=== PATIENT | female | born 1990 | race Caucasian/White ===

== ENCOUNTER 2023-08-19 20:28 | Emergency (ER) | payer BC, SELFPAY ==
[2023-08-19 20:33] VITALS: BP 151/94
[2023-08-19 22:23] VITALS: BP 140/81
[2023-08-19 23:00] VITALS: BP 131/79
--- NOTE | 2023-08-19 23:43 | ED.GENMED ---
History of Present Illness
General
Chief Complaint: Blood Pressure Problem
Source: patient
Exam Limitations: none
Time Seen by Provider: 08/19/23 23:05
Travel History
Have you had any contact with someone who has COVID-19?: No
Do you have any symptoms of coronavirus? Fever > 100 degrees, chills, cough, shortness of breath, sore throat, loss of taste or smell, muscle aches, or headache?: No
History of Present Illness
History of Present Illness:
This is a 33 year old female that comes in with multiple complaints. States that today she was driving home when she started to have this flashing light like as if she had looked into the sun. State that it didn't go away and she pulled over and she
could see out of the corner of her right eye that her peripheral vision was weird. States that this lasted 25 min. Then she started with a headache in the temporal area and across her forehead. States that she called the Fertility doctor as she
just had egg retrieval and they felt it was a Headache with aura. State that she was told to check her BP and she felt it was elevated at 145/92. So she thought she better come in. States that she also had pain in the left calf that started a week
ago. States that she did see her PCP for this and was to get an US but unable until the 16th. Denies any fever, chills, chest pain, SOB, abd pain, nausea, vomiting, diarrhea, dizziness, urinary burning.
Past History
Past History
ED Past Medical History: GERD, Hypothyroidism, Psychiatric (Anxiety) and Other (PCOS)
ED Past Surgical History: Other (Egg retrieval, )
Social History
Tobacco: Non-smoker
Alcohol: None
Personal:
Living: with family
Review of Systems
Review of Systems
All Other Systems: ROS reviewed and negative except as documented in HPI and ROS
Constitutional: Reports no symptoms; Denies fever or chills
EENT: Reports no symptoms
Respiratory: Reports no symptoms; Denies cough or trouble breathing
Cardiac: Reports no symptoms; Denies chest pain
ABD/GI: Reports no symptoms; Denies abdominal pain, nausea, vomiting or diarrhea
: Reports no symptoms; Denies dysuria, frequency or urgency
Musculoskeletal: Reports other (pain left calf)
Skin: Reports no symptoms
Neurological: Reports headache; Denies dizzy
Psychiatric: Reports no symptoms
Phy Exam
General Physical Exam
General Presentation: well appearing and no apparent distress
General age: appears stated age
General Skin: warm and dry
General Habitus: normal
General Mental: alert
General Hydration: appears well hydrated
ENT Exam
ENT Exam: TM's normal, pharynx normal and neck supple
Eye Exam
Eye Exam: EOMI
Cardiovascular Exam
Cardiovascular Exam: regular rate/rhythm, no edema, no murmur and normal peripheral pulses
Pulmonary Exam
Pulmonary Exam: lungs clear, no respiratory distress, no rales, chest non tender, no crackles, no rhonchi, no wheezing and no cough
Gastrointestinal Exam
Gastrointestinal Exam: normal bowel sounds, soft, no organomegaly, no pulsatile mass, non distended and tender (Slight tenderness (patient states that she has her Period))
NIH Stroke Score
Level of Consciousness: 0 - Alert
LOC questions: 0-Answers both correctly
LOC Commands: 0-Performs both correctly
Best Gaze: 0-Normal
Visual Higuera: 0=Normal, no visual loss
Facial palsy: 0=Normal, symmetrical
Motor - Right Arm: 0=No drift 10 seconds
Motor - Left Arm: 0=No drift 10 seconds
Motor - Right Le-No drift 5 seconds
Motor - Left Le-No drift 5 seconds
Limb Ataxia: 0-Absent
Sensation: 0-Normal
Best Language: 0-No aphasia
Dysarthria: 0-Normal
Extinction and Inattention: 0-No abnormality
Total Score:: 0
Musculoskeletal Exam
Musculoskeletal Exam: full ROM and no edema
Skin Exam
Skin Exam: normal color, warm/dry, no rash and no petechia
Psychiatric Exam
Psychiatric Exam: normal mood/affect
Course
Orders/Labs/Results
Orders:
Orders
08/19/23 23:42
Complete Blood Count/With Diff Urgent
Test Result ONCE
08/19/23 23:43
US Periph Venous LOWER Ext LT Urgent
Comment:
Reason For Exam: pAIN IN CALF
08/20/23 00:00
CT Head W/o Iv Contrast Urgent
Reason For Exam: hEADACHE, vISUAL DISTURBANCE
08/20/23 01:10
Comprehensive Metabolic Panel Urgent
HCG, Serum Qualitative Screen Urgent
Comment: REDRAW
Abnormal Lab Results
08/20/23 08/20/23
00:03 01:10
RBC 4.00 L 10^6/uL
(4.20-5.40)
Hct 35.3 L %
(37.0-47.0)
MCH 31.3 H pg
(27.0-31.0)
Chloride 108 H mmol/L
(98-107)
Creatinine 0.5 L mg/dL
(0.6-1.0)
08/20/23 00:03
08/20/23 01:10
Chloride very slightly elevated. HCG negative.
Vital Signs
Initial and Last Documented VS:
Initial Vital Signs
Temp Pulse Resp BP Pulse Ox
98.6 F 76 16 151/94 100
08/19/23 20:33 08/19/23 20:33 08/19/23 20:33 08/19/23 20:33 08/19/23 20:33
Last Documented Vital Signs
Temp Pulse Resp BP Pulse Ox
98.6 F 70 16 112/80 100
08/19/23 20:33 08/20/23 02:15 08/19/23 20:33 08/20/23 02:15 08/20/23 02:16
MDM/Problems Addressed
Differential Diagnosis Includes:
Headache with Aura, Hypertension,
MDM/Problems Addressed:
This is a 33 year old female that comes in with c/o headache, visual disturbance and left calf pain. States that she was driving when she started with right eye visual change like as if she looked into the sun. States that she pulled over and she
could see in her Peripheral vision this colored lights. States that she called the Fertility specialist and they felt it was a Headache with aura. States that she was told to check her BP and she felt it was elevated so she came in. States that she
also has had this left calf pain.
Will get labs, CT head, US
Back into see patient. Explained that her blood work is normal along with the CT of her head and the US is negative. Patient BP at this time is 112/80. Explained that her headache may be due to the hormones that she is taking. Patient to follow up
with the PCP and the Fertility specialist. Return with any concerns.
Chronic conditions affecting care:
NA
Acute Exacerbation and/or Progression of Chronic Illness:
NA
*Radiology
Radiology exam reviewed: radiology read reviewed (CT head night hawk- No acute hemorrhage, herniation, or hydrocephalus. No calvarial fracture. The visualized paranasal sinuses and mastoid air cells are clear. ) and other (US= Negative for DVT)
*Pulse Oximetry
Patient hypoxic: no
*EKG
Interpreted by ED Provider?: NA
Rate: EKG- N/A
*Production Honing Machine Operator Interpretation
Rate: Production Honing Machine Operator- N/A
*Critical Care Note
Total Time (30-74mins, 75-104mins- exclusive of procedures): Not Applicable
ED Attending Note
-
Portions of this chart may have been created with voice recognition software.� Occasional wrong word or��sound alike� substitutions may have occurred due to the inherent limitations of voice recognition software.
Discharge Plan
Departure
Patient Disposition: Home (Routine Discharge)
Date of Disposition: 08/20/23
Time of Disposition:
Patient with high blood pressure during this ER visit?: No
Condition: Good
Covid-19: Not Applicable
Discharge Problem:
Headache
Instructions: Headache, Adult (DC)
Referrals:
Christa Keane CRNP [Family Provider] - Call in 1-3 days for appt
Activity Restrictions/Additional Instructions:
As discussed, your blood work is normal along with the CT of the head. Your BP is 112/80 at this time. This was most likely a headache with an aura. This could be caused due to the hormones you are taking. Follow up with the family doctor and your
Fertility specialist. Your Ultrasound of the left leg is also normal. IF YOU HAVE ANY OTHER CONCERNS PLEASE RETURN TO THE EMERGENCY ROOM.
Interventions
Interventions:
*Risk Screen - Suicide Last Done: 08/19/23 20:33
*General Assessment Last Done: 08/19/23 20:33
*Neglect/Abuse Screening Last Done: 08/19/23 20:33
ED- Fall Risk Assessment Last Done: 08/19/23 20:33
*ED COVID-19 Vaccine History Last Done: 08/19/23 20:33
ED- Cardiac Assessment Last Done: 08/20/23 00:07
ED- Neurological Assessment Last Done: 08/20/23 00:07
ED- Pulmonary Assessment Last Done: 08/20/23 00:07
Discharge Date and Time
Print Language: KHMER
[2023-08-20 00:02] VITALS: BP 137/81
[2023-08-20 00:07] VITALS: BMI 31.7
[2023-08-20 00:10] LABS: % Basophils 0.2 % (0-2); % Eosinophils 3.2 % (0-6); % Immature Granulocytes 0.2 % (0-0.5); % Lymphocytes 36.8 % (20.5-51.1); % Monocytes 6.1 % (1.7-9.3); % Neutrophils 53.5 % (42.2-75.2); Absolute Eosinophils 0.3 10^3/uL (0-0.7); Absolute Lymphocytes 3.1 10^3/uL (1.2-3.4); Absolute Monocytes 0.5 10^3/uL (0.1-0.6); Absolute Neutrophils 4.5 10^3/uL (1.4-6.5); Hematocrit 35.3 % (37.0-47.0); Hemoglobin 12.5 g/dL (12.0-16.0); Mean Corp Hgb Conc. 35.4 g/dL (33.0-37.0); Mean Corpuscular Hgb 31.3 pg (27.0-31.0); Mean Corpuscular Volume 88.3 fL (81.0-99.0); Mean Platelet Volume 10.2 fL (7.4-10.4); Nucleated Red Blood Cells % 0 %; Platelet Count 228 10^3/uL (130-400); Red Cell Dist. Width 12.5 % (11.5-14.5); White Blood Cell Count 8.4 10^3/uL (4.8-10.8)
[2023-08-20 01:32] LABS: HCG, Serum Qualitative Screen Negative
[2023-08-20 01:36] LABS: ALT (SGPT) 18 U/L (0-35); AST (SGOT) 24 U/L (14-36); Alkaline Phosphatase 64 U/L (38-126); Blood Urea Nitrogen 9 mg/dl (7-17); Calcium 8.9 mg/dl (8.4-10.2); Carbon Dioxide 22 mmol/L (22-30); Chloride 108 mmol/L (98-107); Estimated Creatinine Clearance 124 ml/min; Glucose 89 mg/dl (70-99); Potassium 3.5 mmol/L (3.5-5.1); Sodium 135 mmol/L (135-145); Total Bilirubin 0.3 mg/dl (0.2-1.3); Total Protein 6.6 g/dl (6.3-8.2); eGFR > 60.00
[2023-08-20 02:15] VITALS: BP 112/80
== END 2023-08-20 02:51 | disposition home or self-care (01) ==
LOC: EMR 20:28
PROVIDERS: Clinical Nurse Specialist Family Health; EMERGENCY PHYSICIAN Emergency Medicine; FAMILY PHYSICIAN Nurse Practitioner Primary Care
DX: R51.9 Headache, unspecified (principal); M79.662 Pain in left lower leg; H53.8 Other visual disturbances; E03.9 Hypothyroidism, unspecified; K21.9 Gastro-esophageal reflux disease without esophagitis; E28.2 Polycystic ovarian syndrome; F41.9 Anxiety disorder, unspecified
CPT/HCPCS: 99284; 70450; 80053; 84703; 85025; 93971

== ENCOUNTER → 2023-09-06 16:53 | Outpatient (REF) | payer BC, SELFPAY | LOC: RAD 16:53 | PROVIDERS: ATTENDING PHYSICIAN Nurse Practitioner Family | DX: R22.42 Localized swelling, mass and lump, left lower limb (principal) | CPT/HCPCS: 76882 ==

== ENCOUNTER 2023-10-07 18:54 | Emergency (ER) | payer BC, SELFPAY ==
[2023-10-07 19:03] VITALS: BP 142/88
--- NOTE | 2023-10-07 20:04 | ED.GENMED ---
History of Present Illness
General
Chief Complaint: Breast Problem
Source: patient
Exam Limitations: none
Time Seen by Provider: 10/07/23 19:47
Travel History
Have you had any contact with someone who has COVID-19?: No
Do you have any symptoms of coronavirus? Fever > 100 degrees, chills, cough, shortness of breath, sore throat, loss of taste or smell, muscle aches, or headache?: No
History of Present Illness
History of Present Illness:
See MDM
Past History
Past History
ED Past Medical History: GERD, Hypothyroidism, Psychiatric (Anxiety) and Other (PCOS)
ED Past Surgical History: Other (Egg retrieval, )
Social History
Tobacco: Non-smoker
Alcohol: None
Personal:
Living: with family
Phy Exam
Physical Exam
Physical Exam:
See MDM
Course
Orders/Labs/Results
Orders:
Orders
10/07/23 20:03
US Breast Left Ltd Urgent
Comment:
Reason For Exam: pain and swelling to 3 o'clock position
Vital Signs
Initial and Last Documented VS:
Initial Vital Signs
Temp Pulse Resp BP Pulse Ox
98.2 F 76 22 142/88 100
10/07/23 19:03 10/07/23 19:03 10/07/23 19:03 10/07/23 19:03 10/07/23 19:03
Last Documented Vital Signs
Temp Pulse Resp BP Pulse Ox
98.2 F 76 22 142/88 100
10/07/23 19:03 10/07/23 19:03 10/07/23 19:03 10/07/23 19:03 10/07/23 19:03
MDM/Problems Addressed
Differential Diagnosis Includes:
HPI and MDM Narrative:
33-year-old female presenting with tender mass to her left breast. She noticed it earlier today. Patient started to get concerned because she is unsure if this is related to recent IVF and recent onset of migraines. Patient started to get
worried. She denies nipple discharge. She states there is a history of breast cancer on her father side.
Physical exam
General: Well appearing and non-toxic
HEENT: protecting airway
Neck: appears supple
CV: No evidence of cyanosis
Breast: Pea-sized mass palpated just lateral to left nipple along 3 o'clock position. No skin changes nipple discharge
Resp: No accessory muscle use
Abd: Non-distended
Extremities: No deformities
Neuro: alert
Psych: Normal affect
Skin: Intact
Problems Addressed including Acute and Chronic Conditions affecting care:
1. Breast mass
Acuity: acute
Prognosis: stable
Details: Discussed likely fibrocystic mass but will obtain ultrasound.
Updates
Ultrasound limited and no obvious mass or abscess noted. Patient understands that this is not 100% rule out any tumor or malignancy. Discussed having this further evaluated with an official mammogram
Differential Diagnosis (but not limited to): Fibrocystic mass, tumor, cancer, abscess, sebaceous cyst
Testing considered: CT chest
Drug therapy (if applicable): OTC meds, please see d/c instruction regarding Rx drugs
Amount and/or Complexity of Data Reviewed
Clinical info obtained from: Patient
External data reviewed: N/A
Labs I independently reviewed (but not limited to): N/A
Radiology: Ultrasound report reviewed
Pulse Ox: not hypoxic
EKG independently reviewed: N/A
Education Liaison: N/A
Critical Care: N/A
Risk of Complication:
Social Determinants of health: Good social support
Discussed with other providers: N/A
Escalation of Care includes Admit/Obs: After being observed in the Emergency Department, pt stable for discharge.
Occasional wrong word or 'sound a like' substitutions may have occurred due to the inherent limitations of voice recognition software. Read the chart carefully and recognize, using context, where substitutions have occurred.
*Critical Care Note
Total Time (30-74mins, 75-104mins- exclusive of procedures): Not Applicable
ED Attending Note
-
Portions of this chart may have been created with voice recognition software.� Occasional wrong word or��sound alike� substitutions may have occurred due to the inherent limitations of voice recognition software.
Discharge Plan
Departure
Patient Disposition: Home (Routine Discharge)
Date of Disposition: 10/07/23
Time of Disposition: 21:31
Patient with high blood pressure during this ER visit?: No
Discharge Problem:
Breast pain in female
Prescriptions:
No Action
No Current Medications
0
Referrals:
Christa Keane CRNP [Family Provider] -
Activity Restrictions/Additional Instructions:
As we discussed, the ultrasound showed no mass or abscess. You should speak to your doctor about obtaining an official mammogram to further evaluate this.
Interventions
Interventions:
*Risk Screen - Suicide Last Done: 10/07/23 19:03
*Neglect/Abuse Screening Last Done: 10/07/23 19:03
ED-Skin Assessment Last Done: 10/07/23 20:14
Discharge Date and Time
Print Language: OCCITAN
== END 2023-10-07 21:42 | disposition home or self-care (01) ==
LOC: EMR 18:54
PROVIDERS: EMERGENCY PHYSICIAN Student in an Organized Health Care Education/Training Program; FAMILY PHYSICIAN Nurse Practitioner Primary Care
DX: N64.4 Mastodynia (principal)
CPT/HCPCS: 99284; 76642

== ENCOUNTER → 2023-10-11 10:08 | Outpatient (REF) | payer BC, SELFPAY | LOC: WDC 10:08 | PROVIDERS: ATTENDING PHYSICIAN Advanced Practice Midwife; FAMILY PHYSICIAN Nurse Practitioner Primary Care | DX: R92.8 Other abnormal and inconclusive findings on diagnostic imaging of breast (principal) | CPT/HCPCS: 76642; 77062; 77066 ==

== ENCOUNTER → 2024-01-14 11:31 | Outpatient (REF) | payer BC, SELFPAY | LOC: HWRAD 11:31 | PROVIDERS: ATTENDING PHYSICIAN Nurse Practitioner Family | DX: R22.2 Localized swelling, mass and lump, trunk (principal) | CPT/HCPCS: 76604 ==

== ENCOUNTER → 2024-03-17 09:33 | Outpatient (REF) | payer BC, SELFPAY | LOC: WDC 09:33 | PROVIDERS: ATTENDING PHYSICIAN Advanced Practice Midwife; FAMILY PHYSICIAN Nurse Practitioner Primary Care | DX: R92.8 Other abnormal and inconclusive findings on diagnostic imaging of breast (principal) | CPT/HCPCS: 77061; 77065 ==

== ENCOUNTER → 2024-04-04 10:19 | Outpatient (REF) | payer BC, SELFPAY | LOC: WDC 10:19 | PROVIDERS: ATTENDING PHYSICIAN Nurse Practitioner Family; FAMILY PHYSICIAN Nurse Practitioner Primary Care | DX: N63.10 Unspecified lump in the right breast, unspecified quadrant (principal) | CPT/HCPCS: 76642; 77061; 77065 ==

== ENCOUNTER → 2024-04-09 16:38 | Outpatient (REF) | payer BC, SELFPAY | LOC: MRI 3T 16:38 | PROVIDERS: ATTENDING PHYSICIAN Nurse Practitioner Family | DX: H93.A9 Pulsatile tinnitus, unspecified ear (principal) | CPT/HCPCS: 70546; A9585 ==

== ENCOUNTER → 2024-05-09 10:29 | Emergency (ER) | payer BC, SELFPAY ==
[2024-05-09 10:47] VITALS: BP 139/95
[2024-05-09 11:08] LABS: % Basophils 0.6 % (0-2); % Eosinophils 0.9 % (0-6); % Immature Granulocytes 0.3 % (0-0.5); % Monocytes 8.7 % (1.7-9.3); % Neutrophils 50.5 % (42.2-75.2); Absolute Eosinophils 0.1 10^3/uL (0-0.7); Absolute Lymphocytes 2.8 10^3/uL (1.2-3.4); Absolute Monocytes 0.6 10^3/uL (0.1-0.6); Absolute Neutrophils 3.6 10^3/uL (1.4-6.5); Hematocrit 40.5 % (37.0-47.0); Hemoglobin 13.7 g/dL (12.0-16.0); Mean Corp Hgb Conc. 33.8 g/dL (33.0-37.0); Mean Corpuscular Hgb 31.3 pg (27.0-31.0); Mean Corpuscular Volume 92.5 fL (81.0-99.0); Mean Platelet Volume 9.9 fL (7.4-10.4); Nucleated Red Blood Cells % 0 %; Platelet Count 293 10^3/uL (130-400); Red Blood Cell Count 4.38 10^6/uL (4.20-5.40); Red Cell Dist. Width 12.1 % (11.5-14.5); White Blood Cell Count 7.1 10^3/uL (4.8-10.8)
[2024-05-09 11:26] LABS: ALT (SGPT) 17 U/L (0-35); AST (SGOT) 22 U/L (14-36); Albumin 4.5 g/dl (3.5-5.0); Alkaline Phosphatase 44 U/L (38-126); Blood Urea Nitrogen 15 mg/dl (7-17); Calcium 9.6 mg/dl (8.4-10.2); Carbon Dioxide 27 mmol/L (22-30); Chloride 102 mmol/L (98-107); Glucose 121 mg/dl (70-99); Potassium 4.6 mmol/L (3.5-5.1); Sodium 136 mmol/L (135-145); Total Bilirubin 0.6 mg/dl (0.2-1.3); Total Protein 7.1 g/dl (6.3-8.2); eGFR > 60.00
[2024-05-09 11:40] LABS: HCG, Serum Qualitative Screen Negative
--- NOTE | 2024-05-09 11:50 | ED.GENMED ---
History of Present Illness
General
Chief Complaint: Heart Rate Problem
Source: patient
Exam Limitations: none
Time Seen by Provider: 05/09/24 11:50
Nursing documentation reviewed up to this point in time: agreed with
History of Present Illness
History of Present Illness:
34-year-old female presents to the emergency department complaining of hearing her heartbeat in her left ear, worse with turning her head, left-sided neck pain.
Past History
Past History
ED Past Medical History: GERD, Hypothyroidism, Psychiatric (Anxiety) and Other (PCOS)
ED Past Surgical History: Other (Egg retrieval, )
Social History
Tobacco: Non-smoker
Alcohol: None
Personal:
Living: with family
Review of Systems
Review of Systems
Allergies reviewed?: Yes
All Other Systems: Not applicable
Constitutional: Reports no symptoms
EENT: Reports other (tinnitus)
Respiratory: Reports no symptoms
Cardiac: Reports palpitations
ABD/GI: Reports no symptoms
: Reports no symptoms
Musculoskeletal: Reports neck pain
Skin: Reports no symptoms
Neurological: Reports no symptoms
Endocrine: Reports no symptoms
Hematologic/Lymphatic: Reports no symptoms
Psychiatric: Reports no symptoms
Phy Exam
Physical Exam
Physical Exam:
Physical Exam
General: no apparent distress, not acutely ill
Neck: supple. no meningeal signs. normal posterior pharynx
Heart: s1/s2 regular rate and rhythm, no murmur. equal radial
pulses.
HEENT: Pupils equal round reactive to light, EOMI
Lungs: no acute respiratory distress. clear bilaterally
Abdomen: normal bowel sounds. not tender. no CVAT
Neuro: alert and oriented. no focal neurological deficits cranial nerves II through XII intact
Skin: no rash
Psychiatric: well kept. interactive and cooperative
Extremities: no edema. no calf tenderness. negative homans. good distal pulses
Course
Orders/Labs/Results
Orders:
Orders
05/09/24 10:30
EKG [Electrocardiogram (*1)] Urgent
Reason for Study: Bradycardia / Tachycardia
EKG- Treatment ONCE
05/09/24 10:51
EKG- Treatment ONCE
Test Result ONCE
05/09/24 11:00
CBC/With Diff [Complete Blood Count/With Diff] Urgent
Comprehensive Metabolic Panel Urgent
HCG, Serum Qualitative Screen Urgent
TSH Reflex To Free T4 Urgent
Comment: ADD ON
05/09/24 11:46
Add On- LAB Urgent
Tests Added?: tsh reflex to t4
05/09/24 12:10
Neck Angio w/wo Contrast CT [CT Neck Angio W/wo Iv Contrast] Urgent
Comment:
Reason For Exam: left side neck pain, tinnitus
Abnormal Lab Results
05/09/24
11:00
MCH 31.3 H pg
(27.0-31.0)
Glucose 121 H mg/dl
(70-99)
05/09/24 11:00
05/09/24 11:00
Vital Signs
Initial and Last Documented VS:
Initial Vital Signs
Temp Pulse Resp BP Pulse Ox
97.8 F 95 16 139/95 98
05/09/24 10:47 05/09/24 10:47 05/09/24 10:47 05/09/24 10:47 05/09/24 10:47
Last Documented Vital Signs
Temp Pulse Resp BP Pulse Ox
97.8 F 71 18 116/73 99
05/09/24 10:47 05/09/24 13:00 05/09/24 13:00 05/09/24 13:00 05/09/24 13:00
MDM/Problems Addressed
Differential Diagnosis Includes:
Carotid dissection, vertebral dissection, dysrhythmia
MDM/Problems Addressed:
34-year-old female with tenderness, palpitations. No signs of dysrhythmia. No signs of vertebral or carotid dissection. Stable for discharge. Follow-up with primary care. Patient also given name of cardiology to follow-up for possible Holter
monitor.
*Radiology
Radiology exam reviewed: radiology read reviewed (CT neck angiography no acute findings)
*Pulse Oximetry
Patient hypoxic: no
*EKG
Interpreted by ED Provider?: Yes
EKG Intrepretation Date: 05/09/24
EKG Intrepretation Time: 10:38
Interpretation: abnormal
Comparison EKG: no changes
Heart Rate: 87
Rate: normal
Rhythm: sinus
Machias: normal axis
Interval: normal interval
QRS Pattern: normal QRS
Ischemia: non-specific ST changes
*Hall Supervisor Interpretation
Rate: normal
Interpretation: normal
Heart Rate: 84
Rhythm: sinus
*Critical Care Note
Total Time (30-74mins, 75-104mins- exclusive of procedures): Not Applicable
Data Reviewed
Review of Other/Old Records Reveals: Radiology Studies (MRA Head: nad)
Source: records
Patient Management
Social determinants of health affecting care: Living situation
Escalation/DeEscalation of care consider admission/obs:
admit not indicated
ED Attending Note
-
Portions of this chart may have been created with voice recognition software.� Occasional wrong word or��sound alike� substitutions may have occurred due to the inherent limitations of voice recognition software.
Discharge Plan
Departure
Patient Disposition: Home (Routine Discharge)
Date of Disposition: 05/09/24
Time of Disposition: 13:41
Patient with high blood pressure during this ER visit?: No
Condition: Good
Discharge Problem:
Palpitations, Tinnitus
Instructions: Tinnitus (ringing in the ears), Palpitations (DC)
Prescriptions:
No Action
No Current Medications
0
Referrals:
Michael Madrigal MD [Active] - Call in 1-3 days for appt
Juan Mccain CRNP [Family Provider] -
Interventions
Interventions:
*Risk Screen - Suicide Last Done: 05/09/24 10:47
*General Assessment Last Done: 05/09/24 11:43
*Neglect/Abuse Screening Last Done: 05/09/24 10:47
*ED COVID-19 Vaccine History Last Done: 05/09/24 11:43
ED- Cardiac Assessment Last Done: 05/09/24 11:43
ED- Pulmonary Assessment Last Done: 05/09/24 11:43
Discharge Date and Time
Print Language: PASHTO
[2024-05-09 11:52] VITALS: BP 117/80
[2024-05-09 12:00] VITALS: BP 137/79
[2024-05-09 13:00] VITALS: BP 116/73
[2024-05-09 13:41] LABS: TSH Reflex To Free T4 1.45 uIU/ml (0.47-4.68)
== END | disposition home or self-care (01) ==
LOC: EMR 10:29
PROVIDERS: EMERGENCY PHYSICIAN Emergency Medicine; FAMILY PHYSICIAN Nurse Practitioner Family
DX: R00.2 Palpitations (principal); H93.12 Tinnitus, left ear
CPT/HCPCS: 99285; 70498; 80053; 84443; 84703; 85025; 93005; Q9967

== ENCOUNTER → 2024-08-04 09:04 | Outpatient (REF) | payer BC, SELFPAY | LOC: WDC 09:04 | PROVIDERS: ATTENDING PHYSICIAN Nurse Practitioner Family; FAMILY PHYSICIAN Nurse Practitioner Primary Care | DX: N63.10 Unspecified lump in the right breast, unspecified quadrant (principal); N63.12 Unspecified lump in the right breast, upper inner quadrant | CPT/HCPCS: 76642; 77062; 77066 ==

== ENCOUNTER → 2024-12-22 10:24 | Outpatient (REF) | payer BC, SELFPAY | LOC: WDC 10:24 | PROVIDERS: ATTENDING PHYSICIAN Student in an Organized Health Care Education/Training Program | DX: N63.0 Unspecified lump in unspecified breast (principal); N63.32 Unspecified lump in axillary tail of the left breast | CPT/HCPCS: 76642; 77061; 77065 ==

== ENCOUNTER → 2025-04-14 10:35 | Outpatient (REF) | payer BC, SELFPAY | LOC: HWRAD 10:35 | PROVIDERS: ATTENDING PHYSICIAN Obstetrics & Gynecology; FAMILY PHYSICIAN Nurse Practitioner Primary Care | DX: N92.1 Excessive and frequent menstruation with irregular cycle (principal) | CPT/HCPCS: 76830; 76856 ==